=== PATIENT | female | born 1955 | race Caucasian/White ===

== ENCOUNTER → 2016-11-25 | Outpatient (CLI) | payer MEDICARE ==
[~2016-11-25] MED LIST: ASTELIN137 MCG; CHOLESTEROL MED; CYMBALTA PO; DESYREL50 M1; FENOFIBRATE160 MG PO; FLEXERIL PO; FLONASE 0.05% N16 G1; IBUPROFEN800 MG PO; LORTAB 5/500 TA1 TA1 PO; LORTAB 7.5-5001 TAB PO; MUSCLE RELAXER; NORCO 5/325 TAB1 TAB PO; SLEEPING PILL; SPIRIVA18 MCG; SYMBICORT; TIZANIDINE HCL2 MG; ULTRAM PO; VOLTAREN50 MG PO; ZOCOR PO; ZOLOFT100 MG PO; ZYRTEC10 M2
== END | disposition home or self-care (01) ==
LOC: CRC 09:22
DX: J44.9 Chronic obstructive pulmonary disease, unspecified (principal); J30.9 Allergic rhinitis, unspecified; G47.33 Obstructive sleep apnea (adult) (pediatric); R06.00 Dyspnea, unspecified
CPT/HCPCS: 94060; 94726; 94729